=== PATIENT | female | born 1990 | race African-American/Black ===

== ENCOUNTER 2017-11-26 12:31 | Emergency (ER) | payer MEDICAID, OTHER ==
[~2017-11-26] VITALS: Ht 162.6 cm; Wt 68.0 kg
[2017-11-26] MEDS ORDERED: Tetracaine 0.5% Opth 4ml Soln OP ONE (13:15)
[2017-11-26] MEDS ORDERED: Norco 5mg/325mg tab ORAL ONE (13:45)
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
[2017-11-26] MEDS ORDERED: IBUPROFEN600 MG ORAL (14:28)
[2017-11-26] MEDS ORDERED: NORCO 5-325 TA1 EAC1 ORAL (14:28)
[2017-11-26 14:38] VITALS: BP 126/72
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
== END 2017-11-26 14:38 | disposition home or self-care (01) ==
LOC: EMR 12:50
DX: S05.92XA Unspecified injury of left eye and orbit, initial encounter (principal); H11.32 Conjunctival hemorrhage, left eye; W50.0XXA Accidental hit or strike by another person, initial encounter; Y93.9 Activity, unspecified; Y92.9 Unspecified place or not applicable
CPT/HCPCS: 70480; 99284